=== PATIENT | female | born 1935 | race African-American/Black ===

== ENCOUNTER 2021-10-01 17:32 | Emergency (ER) | payer MEDICARE ==
[~2021-10-01] VITALS: Ht 154.9 cm; Wt 57.0 kg
[2021-10-01] MEDS ORDERED: IBUPROFEN 400MG TABLET PO ONE (22:30)
[2021-10-01] MEDS ORDERED: CEPH500C2 MT (22:37)
[2021-10-01] MEDS ORDERED: CLIN300C12 MT (22:37)
[2021-10-01] MEDS ORDERED: CEPHALEXIN 250MG CAPSULE PO ONE (22:45)
[2021-10-01 23:04] VITALS: BP 127/92
[2021-10-02] MEDS ORDERED: CLINDAMYCIN HCL 150MG CAPSULE PO SCH
== END 2021-10-01 23:05 | disposition home or self-care (01) ==
LOC: ER 17:32
DX: L03.116 Cellulitis of left lower limb (principal); E78.00 Pure hypercholesterolemia, unspecified; I11.0 Hypertensive heart disease with heart failure; I50.9 Heart failure, unspecified; I25.2 Old myocardial infarction; I10 Essential (primary) hypertension; Z90.49 Acquired absence of other specified parts of digestive tract; Z86.73 Personal history of transient ischemic attack (TIA), and cerebral infarction without residual deficits
CPT/HCPCS: 99284

== ENCOUNTER 2021-10-14 14:59 | Inpatient (IN) | payer MEDICARE, MEDICAID ==
[~2021-10-14] VITALS: Ht 157.5 cm; Wt 58.1 kg
[~2021-10-14 14:59] MED LIST: CEPH500C2 MT; CLIN300C12 MT
[2021-10-14 17:28] LABS: BASOPHILS % 0.6 % (0.0-2.0); EOSINOPHILS % 1.2 % (0.0-5.0); HEMOGLOBIN. 11.2 g/dL (12.0-16.0); LYMPHOCYTES % 13.1 % (20.0-50.0); MEAN CORPUSCULAR HEMOGLOBIN 25.9 pg (28.0-32.0); MEAN CORPUSCULAR VOLUME 80.8 fL (81.0-99.0); MEAN PLATELET VOLUME 10.4 fl (7.4-10.4); MONOCYTES % 14.6 % (2.0-8.0); NEUTROPHILS % 70.5 % (40.0-76.0); PLATELET 197 x1000/uL (130-400); RED BLOOD CELL COUNT 4.33 mill/uL (4.2-5.4); RED CELL DISTRIBUTION WIDTH 15.9 % (11.6-14.6)
[2021-10-14 17:37] LABS: CHLORIDE 103 mEq/L (98-107)
[2021-10-14] MEDS ORDERED: ONDANSETRON HCL 4MG/2ML INJ IV STA (22:50)
[2021-10-14] MEDS ORDERED: MORPHINE SULFATE 4 MG/ML CPJ (NOT FOR IM USE) IV STA (22:50)
[2021-10-14] MEDS ORDERED: CLINDAMYCIN 600 MG in DEXTROSE 5% WATER 50 ML IV ONE (23:00)
[2021-10-14] MEDS ORDERED: SODIUM CHLORIDE 0.9% 1,000 ML IV ONE (23:00)
[2021-10-14] MEDS ORDERED: VANCOMYCIN 1 G PREMIX 200 ML IV ONE (23:00)
[2021-10-14] MEDS ORDERED: PIPERACILLIN/TAZ 3.375G PREMIX 50 ML IV ONE (23:00)
[2021-10-14] MEDS ORDERED: CLINDAMYCIN 600MG PREMIX 50 ML IV NR (23:15)
[2021-10-15] VITALS (7 sets, daily range): BP systolic 122–171; BP diastolic 56–82
[2021-10-15] MEDS ORDERED: ONDANSETRON HCL 4MG/2ML INJ IV PRN (05:45)
[2021-10-15] MEDS ORDERED: ACETAMINOPHEN 325MG TABLET PO PRN ×2 (05:45)
[2021-10-15] MEDS ORDERED: DEXTROSE 50% WATER 50ML SYRINGE IV PRN (05:45)
[2021-10-15] MEDS ORDERED: MAGNESIUM/ALUMINUM HYDROXIDE/SIMETHICONE 30ML UDC PO PRN (05:45)
[2021-10-15] MEDS: SODIUM CHLORIDE 0.9% 1,000 ML IV SCH ×2 (06:10→16:17)
[2021-10-15] MEDS: HYDROCODONE/ACETAMINOPHEN 5/325MG TABLET PO PRN (06:33)
[2021-10-15 06:49] LABS: BASOPHILS % 0.3 % (0.0-2.0); EOSINOPHILS % 1.1 % (0.0-5.0); HEMATOCRIT. 33.1 % (36.0-48.0); HEMOGLOBIN. 10.4 g/dL (12.0-16.0); LYMPHOCYTES % 13.5 % (20.0-50.0); MEAN CORPUSCULAR HEMOGLOBIN 25.1 pg (28.0-32.0); MEAN CORPUSCULAR VOLUME 79.9 fL (81.0-99.0); MONOCYTES % 13.2 % (2.0-8.0); NEUTROPHILS % 71.9 % (40.0-76.0); PLATELET 171 x1000/uL (130-400); RED BLOOD CELL COUNT 4.14 mill/uL (4.2-5.4); RED CELL DISTRIBUTION WIDTH 15.9 % (11.6-14.6)
[2021-10-15 06:54] LABS: PHOSPHORUS 3.3 mg/dL (2.5-4.9)
[2021-10-15] MEDS: INSULIN LISPRO 100 UNITS/ML SUBCUT SCH ×2 (08:20→12:38)
[2021-10-15] MEDS: BLOOD SUGAR DIAGNOSTIC STRIP TEST SCH ×2 (09:00→12:38)
[2021-10-15] MEDS ORDERED: CARV12.545 PO (10:31)
[2021-10-15] MEDS ORDERED: FERR-71 PO (10:31)
[2021-10-15] MEDS ORDERED: ROSU20TA2 PO (10:31)
[2021-10-15] MEDS ORDERED: ISOS20TA57 PO (10:31)
[2021-10-15] MEDS ORDERED: FURO40TA5 PO (10:31)
[2021-10-15] MEDS ORDERED: PANT40TA51 PO (10:31)
[2021-10-15] MEDS ORDERED: LISI20TA31 PO (10:31)
[2021-10-15] MEDS ORDERED: CELE100C97 MT (10:31)
[2021-10-15] MEDS ORDERED: CLOP75TA33 PO (10:31)
[2021-10-15] MEDS: ENOXAPARIN 30MG/0.3ML SYR SUBCUT SCH (10:56)
[2021-10-15] MEDS ORDERED: *PATIENT'S OWN MEDICATION STORAGE XX SCH (11:45)
[2021-10-15] MEDS ORDERED: CLOPIDOGREL 75MG TABLET PO SCH (13:00)
[2021-10-15] MEDS ORDERED: NALOXONE HCL 0.4MG/ML VIAL IV PRN (13:15)
[2021-10-15] MEDS: CARVEDILOL 12.5MG TABLET PO SCH ×2 (13:16→22:17)
[2021-10-15] MEDS ORDERED: ISOS60TA76 PO (13:28)
[2021-10-15] MEDS: ISOSORBIDE MONONITRATE 60MG TABLET SR 24HR PO SCH (14:28)
[2021-10-15] MEDS ORDERED: ISOSORBIDE MONONITRATE 20MG TABLET PO SCH (14:30)
[2021-10-15] MEDS ORDERED: POTASSIUM CHLORIDE 20MEQ TABLET SR PO NR (16:30)
[2021-10-15] MEDS: PANTOPRAZOLE 40MG DR TABLET PO SCH (22:16)
[2021-10-15] MEDS: VANCOMYCIN 750 MG PREMIX 150 ML IV SCH (22:16)
[2021-10-15] MEDS: CEFEPIME 1,000 MG in DEXTROSE 5% WATER 50 ML IV SCH (22:16)
[2021-10-15] MEDS: LISINOPRIL 20MG TABLET PO SCH (22:16)
[2021-10-16] VITALS: BP 149/56
[2021-10-16] MEDS: SODIUM CHLORIDE 0.9% 1,000 ML IV SCH ×3 (01:17→21:13)
[2021-10-16 04:00] VITALS: BP 148/56
[2021-10-16] MEDS: HYDROCODONE/ACETAMINOPHEN 5/325MG TABLET PO PRN ×3 (07:37→18:03)
[2021-10-16 08:05] LABS: INR 1.2; PROTHROMBIN TIME 12.5 sec (9.6-11.0)
[2021-10-16 08:16] LABS: PHOSPHORUS 2.5 mg/dL (2.5-4.9)
[2021-10-16 08:22] LABS: BASOPHILS % 0.8 % (0.0-2.0); EOSINOPHILS % 1.6 % (0.0-5.0); HEMATOCRIT. 31.9 % (36.0-48.0); LYMPHOCYTES % 14.4 % (20.0-50.0); MEAN CORPUSCULAR VOLUME 82.5 fL (81.0-99.0); MEAN PLATELET VOLUME 10.7 fl (7.4-10.4); MONOCYTES % 12.7 % (2.0-8.0); NEUTROPHILS % 70.5 % (40.0-76.0); PLATELET 159 x1000/uL (130-400); RED BLOOD CELL COUNT 3.86 mill/uL (4.2-5.4); RED CELL DISTRIBUTION WIDTH 15.9 % (11.6-14.6)
[2021-10-16] MEDS: CARVEDILOL 12.5MG TABLET PO SCH ×2 (10:27→21:15)
[2021-10-16] MEDS: ISOSORBIDE MONONITRATE 60MG TABLET SR 24HR PO SCH (10:27)
[2021-10-16] MEDS: PANTOPRAZOLE 40MG DR TABLET PO SCH ×2 (10:27→21:15)
[2021-10-16] MEDS: ENOXAPARIN 30MG/0.3ML SYR SUBCUT SCH (10:28)
[2021-10-16] MEDS: CEFEPIME 1,000 MG in DEXTROSE 5% WATER 50 ML IV SCH ×2 (10:28→21:13)
[2021-10-16 12:00] VITALS: BP 146/59
[2021-10-16 16:00] VITALS: BP 111/63
[2021-10-16 20:00] VITALS: BP 160/63
[2021-10-16] MEDS: LISINOPRIL 20MG TABLET PO SCH (21:14)
[2021-10-16] MEDS: VANCOMYCIN 750 MG PREMIX 150 ML IV SCH (22:50)
[2021-10-17] VITALS: BP 161/62
[2021-10-17] MEDS ORDERED: HYDRALAZINE 20MG/ML VIAL IV PRN (00:45)
[2021-10-17] MEDS: HYDRALAZINE 10 MG in SODIUM CHLORIDE 0.9% 49.5 ML IV PRN (01:17)
[2021-10-17 04:00] VITALS: BP 133/64
[2021-10-17 07:20] LABS: CHLORIDE 113 mEq/L (98-107)
[2021-10-17] MEDS: SODIUM CHLORIDE 0.9% 1,000 ML IV SCH (08:00)
[2021-10-17] MEDS: ISOSORBIDE MONONITRATE 60MG TABLET SR 24HR PO SCH (08:39)
[2021-10-17] MEDS: FAMOTIDINE 20MG TABLET PO SCH (08:39)
[2021-10-17] MEDS: ENOXAPARIN 30MG/0.3ML SYR SUBCUT SCH (08:40)
[2021-10-17] MEDS: CARVEDILOL 12.5MG TABLET PO SCH ×2 (08:40→20:14)
[2021-10-17] MEDS: CEFEPIME 1,000 MG in DEXTROSE 5% WATER 50 ML IV SCH ×2 (08:40→20:14)
[2021-10-17] MEDS: HYDROCODONE/ACETAMINOPHEN 5/325MG TABLET PO PRN ×2 (09:28→13:31)
[2021-10-17] MEDS ORDERED: VANCOMYCIN 1 G PREMIX 200 ML IV SCH (18:00)
[2021-10-17 20:00] VITALS: BP 168/78
[2021-10-17] MEDS: LISINOPRIL 20MG TABLET PO SCH (20:14)
[2021-10-18] VITALS: BP 164/79
[2021-10-18] MEDS: HYDRALAZINE 10 MG in SODIUM CHLORIDE 0.9% 49.5 ML IV PRN ×3 (01:54→16:51)
[2021-10-18 04:00] VITALS: BP 118/61
[2021-10-18] MEDS: SODIUM CHLORIDE 0.9% 1,000 ML IV SCH ×2 (05:33→15:21)
[2021-10-18] MEDS: ISOSORBIDE MONONITRATE 60MG TABLET SR 24HR PO SCH (09:01)
[2021-10-18] MEDS: FAMOTIDINE 20MG TABLET PO SCH (09:02)
[2021-10-18] MEDS: CARVEDILOL 12.5MG TABLET PO SCH (09:02)
[2021-10-18] MEDS: ENOXAPARIN 30MG/0.3ML SYR SUBCUT SCH (09:06)
[2021-10-18] MEDS: CEFEPIME 1,000 MG in DEXTROSE 5% WATER 50 ML IV SCH (09:16)
[2021-10-18] MEDS ORDERED: FUROSEMIDE 40MG TABLET PO SCH (13:00)
[2021-10-18] MEDS ORDERED: CEFEPIME 1,000 MG in DEXTROSE 5% WATER 50 ML IV NR (14:00)
[2021-10-18] MEDS: HYDROCODONE/ACETAMINOPHEN 5/325MG TABLET PO PRN (16:21)
[2021-10-18 17:52] VITALS: BP 146/80
[2021-10-18 18:06] VITALS: BP 146/74
== END 2021-10-18 18:30 | disposition home health service (06) | DRG 264 ==
LOC: ER 14:59 → 6EST 10-15 01:32 → EDBEDREQ 10-15 01:47 → EDBEDREQTM 10-15 01:47 → SUPCPDRO 10-15 05:34 → EDBEDREQSVC 10-15 07:34 → ENRESERV 10-15 08:43
PROVIDERS: ADMIT Internal Medicine; ATTEND Internal Medicine
PROC: 0JBR0ZZ Excision of Left Foot Subcutaneous Tissue and Fascia, Open Approach (ICD-10-PCS; principal; 2021-10-16)
DX: I87.2 Venous insufficiency (chronic) (peripheral) (principal); L97.328 Non-pressure chronic ulcer of left ankle with other specified severity; L03.116 Cellulitis of left lower limb; I69.354 Hemiplegia and hemiparesis following cerebral infarction affecting left non-dominant side; N17.9 Acute kidney failure, unspecified; E44.0 Moderate protein-calorie malnutrition; E78.00 Pure hypercholesterolemia, unspecified; E87.6 Hypokalemia; I11.0 Hypertensive heart disease with heart failure; I25.10 Atherosclerotic heart disease of native coronary artery without angina pectoris; D50.9 Iron deficiency anemia, unspecified; B96.5 Pseudomonas (aeruginosa) (mallei) (pseudomallei) as the cause of diseases classified elsewhere; I50.9 Heart failure, unspecified; E88.09 Other disorders of plasma-protein metabolism, not elsewhere classified; I25.2 Old myocardial infarction; Z98.61 Coronary angioplasty status; Z79.899 Other long term (current) drug therapy; Z90.49 Acquired absence of other specified parts of digestive tract; Z68.23 Body mass index [BMI] 23.0-23.9, adult
CPT/HCPCS: 36415; 73630; 73700; 80048; 80053; 80202; 82962; 83036; 83605; 83735; 84100; 84145; 85025; 86140; 86850; 86900; 87070; 87077; 87186; 93922; 93970; 93971; 97161; 97166; 99285; J0360; J0692; J1650; J2270; J2405; J2543; J3370; J3490; J7030; J7060